=== PATIENT | male | born 1970 ===

== ENCOUNTER 2024-08-11 18:56 | Emergency (ER) | payer SELFPAY ==
[2024-08-11] MEDS: Amoxicillin/Clavulanate K 875-125 MG Tab PO ONE (19:43)
[2024-08-11] MEDS: Benzocaine 20% Topical Spray UD MUCMEM ONE (19:43)
[2024-08-11] MEDS: Lidocaine 2% Viscous Solution 15 ML UD PO ONE (19:43)
== END 2024-08-11 19:58 | disposition home or self-care (01) ==
LOC: MW.ED 18:56
DX: K08.89 Other specified disorders of teeth and supporting structures (principal); E78.00 Pure hypercholesterolemia, unspecified; I10 Essential (primary) hypertension; Z75.3 Unavailability and inaccessibility of health-care facilities; Z79.82 Long term (current) use of aspirin; Z79.899 Other long term (current) drug therapy
CPT/HCPCS: 99282; A9270; 99283